=== PATIENT | female | born 1940 | race African-American/Black ===

== ENCOUNTER 2017-05-09 16:26 | Emergency (ER) | payer MEDICARE, BC ==
[~2017-05-09] VITALS: Ht 160 cm; Wt 72.6 kg
[2017-05-09 18:13] LABS: BASO # 0.1 x10^3/uL (0.0-0.2); BASO % 1 % (0-3); EOS % 3 % (0-3); HEMATOCRIT 37.5 % (36.0-47.0); HEMOGLOBIN 12.3 g/dL (12.0-15.5); LYMPH # 1.6 x10^3/uL (1.0-4.8); LYMPH % 13 % (24-48); MEAN CORPUSCULAR HEMOGLOBIN 28 pg (25-35); MEAN CORPUSCULAR HGB CONC 33 g/dL (31-37); MEAN CORPUSCULAR VOLUME 86 fL (79-100); MONO % 9 % (0-9); NEUT % 75 % (31-73); PLATELET COUNT 146 x10^3/uL (140-400); RED BLOOD COUNT 4.33 x10^6/uL (3.50-5.40); RED CELL DISTRIBUTION WIDTH 14.4 % (11.5-14.5); WHITE BLOOD COUNT 12.1 x10^3/uL (4.0-11.0)
[2017-05-09 18:20] LABS: BILIRUBIN,URINE NEGATIVE (NEG); GLUCOSE,URINE NEGATIVE (NEG); NITRITE,URINE NEGATIVE (NEG); PROTEIN,URINE NEGATIVE (NEG-TRACE)
[2017-05-09 18:21] LABS: CALCIUM 9.3 mg/dL (8.5-10.1); GFR 64.9; POTASSIUM 3.9 mmol/L (3.5-5.1)
[2017-05-09 18:26] LABS: ALBUMIN 3.4 g/dL (3.4-5.0); DIRECT BILIRUBIN 0.3 mg/dL (0.0-0.2); TOTAL BILIRUBIN 0.8 mg/dL (0.2-1.0); TOTAL PROTEIN 7.1 g/dL (6.4-8.2)
--- NOTE | 2017-05-09 18:33 | EKG ---
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
[2017-05-09 18:35] LABS: BACTERIA,URINE MANY /HPF (0-FEW); RBC,URINE 0 /HPF (0-2); SQUAMOUS EPITHELIAL CELL,UR MOD /LPF
[2017-05-09] MEDS ORDERED: OSELTAMIVIR 75 MG CAPSULE PO ONE ×2 (18:52→19:15)
[2017-05-09] MEDS ORDERED: ACETAMINOPHEN 325 MG TABLET. PO ONE (19:00)
[2017-05-09] MEDS ORDERED: AZITHROMYCIN 250 MG TABLET. PO ONE (19:00)
[2017-05-09] MEDS ORDERED: KETOROLAC 15 MG/ML VIAL. IV ONE (19:00)
[2017-05-09] MEDS ORDERED: IV NORMAL SALINE 1000ML BAG 1,000 ML IV ONE (19:00)
[2017-05-09 19:15] LABS: OBC FLU VALID
[2017-05-09] MEDS ORDERED: OSEL75CA PO (19:36)
[2017-05-09] MEDS ORDERED: AZIT250T PO (19:36)
--- NOTE | 2017-05-09 19:37 | PHYS DOC ---
Past Medical History Past Medical History: Hypertension Past Surgical History: No Surgical History Alcohol Use: None Drug Use: None Adult General Chief Complaint Chief Complaint: COUGH HPI HPI Patient is a 76 year old female with a history significant for hypertension and bradycardia presents to the ER today secondary to fevers for approximately 1 -2 days as well as a nonproductive cough for 2 days. Patient reports that she is scheduled to leave for [place] on Friday to spend [place] with her grandchild and she is trying to avert any illnesses as much as possible. Patient reports she's had no nausea vomiting or diarrhea. No chest pain or shortness of breath. No abdominal pain sore throat or ear pain dysuria frequency or urgency. Patient reports she has had her flu shot pressure 2 days ago prior to her symptoms starting. Patient reports no history of diabetes liver longer kidney pals. Patient denies any prior surgeries. Patient does not smoke drink or do any drugs. Patient is allergic to any medications. Review of systems: Constitutional: Admits to fevers Eyes: Denies change in visual acuity, redness, or eye pain HENT: Denies sore throat. Admits to nasal congestion. All other systems were reviewed and found to be within normal limits, except as documented in this note. Physical exam Constitutional: Well developed, well nourished, no acute distress, non-toxic appearance. HENT: Normocephalic, atraumatic, bilateral external ears normal, oropharynx moist, no oral exudates, nose normal. Eyes: PERRLA, EOMI, conjunctiva normal, no discharge. Neck: Normal range of motion, no tenderness, supple, no stridor. Cardiovascular:Heart rate regular rhythm, Lungs & Thorax: Bilateral breath sounds clear to auscultation Abdomen: Nondistended. Skin: Warm, dry, no erythema, no rash. Back: No tenderness, no CVA tenderness. Extremities: No tenderness, no cyanosis, no clubbing, ROM intact, no edema. Neurologic: Alert and oriented X 3, normal motor function, normal sensory function, no focal deficits noted. Psychologic: Affect normal, judgement normal, mood normal. ER physical exam is significant for: Influenza test negative for a and B CBC, CMP within normal limits Chest x-ray clear without any infiltrates or effusions as interpreted by ER physician. Assessment and plan: 1. This is a 76-year-old female who presents here today with URI symptoms cough and congestion who has signs and symptoms that could be consistent with influenza. Patient reports she did get her influenza shot however with only 2 days ago. Patient denies any other symptomatology other than the respiratory symptoms. Patient's chest x-ray was unremarkable without any evidence of pneumonia. Patient's blood twice last within normal limits. Patient's influenza test was negative. Patient was given IV fluids as well as Tamiflu and Zithromax here in the ED to cover her. Patient is requesting broad-spectrum treatment since she is leaving for [place] on Friday. Patient be discharged home on Zithromax and Tamiflu 75 mg twice a day 5 days. Patient was given a prescription for Tylenol/Motrin. Patient's clinically hemodynamically stable for discharged home. Patient's pulse ox is 99% on room air which is normal. Current Medications Current Medications Current Medications Medications (Trade) Dose Ordered Sig/Delia Start Time Stop Time Status Last Admin Dose Admin Acetaminophen (Tylenol) 650 mg 1X ONCE 05/09/17 19:00 05/09/17 19:01 DC 05/09/17 18:57 650 MG Azithromycin (Zithromax) 500 mg 1X ONCE 05/09/17 19:00 05/09/17 19:01 DC 05/09/17 18:58 500 MG Ketorolac Tromethamine (Toradol) 15 mg 1X ONCE 05/09/17 19:00 05/09/17 19:01 DC 05/09/17 18:57 15 MG Oseltamivir Phosphate (Tamiflu) 30 mg BID 05/10/17 09:00 05/15/17 08:59 Sodium Chloride 1,000 ml @ 1,000 mls/hr 1X ONCE 05/09/17 19:00 05/09/17 19:59 05/09/17 18:57 1,000 MLS/HR Allergies Allergies Allergies Coded Allergies Type Severity Reaction Last Updated Verified No Known Drug Allergies 05/09/17 No Current Patient Data Vital Signs Vital Signs Date Time Temp Pulse Resp B/P (MAP) Pulse Ox O2 Delivery O2 Flow Rate FiO2 05/09/17 16:50 98.3 64 20 143/65 (91) 98 Room Air 98.3 Lab Values Laboratory Tests Test 05/09/17 17:50 05/09/17 18:00 05/09/17 18:45 Urine Collection Type Unknown Urine Color Yellow Urine Clarity Clear Urine pH 6.0 Urine Specific [place] <=1.005 Urine Protein Negative mg/dL (NEG-TRACE) Urine Glucose (UA) Negative mg/dL (NEG) Urine Ketones (Stick) Negative mg/dL (NEG) Urine Blood Negative (NEG) Urine Nitrite Negative (NEG) Urine Bilirubin Negative (NEG) Urine Urobilinogen Dipstick 1.0 mg/dL (0.2 mg/dL) Urine Leukocyte Esterase Small (NEG) Urine RBC 0 /HPF (0-2) Urine WBC 5-10 /HPF (0-4) Urine Squamous Epithelial Cells Mod /LPF Urine Bacteria Many /HPF (0-FEW) White Blood Count 12.1 x10^3/uL (4.0-11.0) H Red Blood Count 4.33 x10^6/uL (3.50-5.40) Hemoglobin 12.3 g/dL (12.0-15.5) Hematocrit 37.5 % (36.0-47.0) Mean Corpuscular Volume 86 fL (79-100) Mean Corpuscular Hemoglobin 28 pg (25-35) Mean Corpuscular Hemoglobin Concent 33 g/dL (31-37) Red Cell Distribution Width 14.4 % (11.5-14.5) Platelet Count 146 x10^3/uL (140-400) Neutrophils (%) (Auto) 75 % (31-73) H Lymphocytes (%) (Auto) 13 % (24-48) L Monocytes (%) (Auto) 9 % (0-9) Eosinophils (%) (Auto) 3 % (0-3) Basophils (%) (Auto) 1 % (0-3) Neutrophils # (Auto) 9.0 x10^3uL (1.8-7.7) H Lymphocytes # (Auto) 1.6 x10^3/uL (1.0-4.8) Monocytes # (Auto) 1.0 x10^3/uL (0.0-1.1) Eosinophils # (Auto) 0.3 x10^3/uL (0.0-0.7) Basophils # (Auto) 0.1 x10^3/uL (0.0-0.2) Sodium Level 143 mmol/L (136-145) Potassium Level 3.9 mmol/L (3.5-5.1) Chloride Level 105 mmol/L (98-107) Carbon Dioxide Level 29 mmol/L (21-32) Anion Gap 9 (6-14) Blood Urea Nitrogen 11 mg/dL (7-20) Creatinine 1.0 mg/dL (0.6-1.0) Estimated GFR (Cockcroft-Gault) 64.9 Glucose Level 108 mg/dL (70-99) H Lactic Acid Level 1.3 mmol/L (0.4-2.0) Calcium Level 9.3 mg/dL (8.5-10.1) Total Bilirubin 0.8 mg/dL (0.2-1.0) Direct Bilirubin 0.3 mg/dL (0.0-0.2) H Aspartate Amino Transferase (AST) 18 U/L (15-37) Alanine Aminotransferase (ALT) 26 U/L (14-59) Alkaline Phosphatase 86 U/L (46-116) Troponin I Quantitative < 0.017 ng/mL (0.000-0.055) PP-Zig-[id number]-Type Natriuretic Peptide 289 pg/mL (0-449) Total Protein 7.1 g/dL (6.4-8.2) Albumin 3.4 g/dL (3.4-5.0) Lipase 62 U/L (73-393) L Influenza Type A Antigen Negative (NEGATIVE) Influenza Type B Antigen Negative (NEGATIVE) Laboratory Tests 05/09/17 18:00 Laboratory Tests 05/09/17 18:00 EKG EKG [] Radiology/Procedures Radiology/Procedures [] Course & Med Decision Making Course & Med Decision Making Pertinent Labs and Imaging studies reviewed. (See chart for details) [] Dragon Disclaimer Dragon Disclaimer This electronic medical record was generated, in whole or in part, using a voice recognition dictation system. Departure Departure Impression: Primary Impression: Upper respiratory infection Additional Impressions: Viral illness Bronchitis Disposition: 01 HOME, SELF-CARE Condition: IMPROVED Referrals: UNKNOWN PCP NAME (PCP) Patient Instructions: Acute Bronchitis, Influenza, Adult, Upper Respiratory Infection, Adult Scripts Azithromycin (ZITHROMAX) 250 Mg Tablet 1 PKG PO UD, #6 TAB Prov: TIGRE NGUYEN MD 05/09/17 Oseltamivir Phosphate (TAMIFLU) 75 Mg Capsule 75 MG PO BID for FLU for 5 Days, TAB 0 Refills Prov: TIGRE NGUYEN MD 05/09/17 Problem Qualifiers TIGRE NGUYEN MD May 09, 2017 19:37
[2017-05-09 19:46] VITALS: BP 154/73
[2017-05-10] MEDS ORDERED: OSELTAMIVIR 75 MG CAPSULE PO SCH (09:00)
[2017-05-10] MEDS ORDERED: OSELTAMIVIR 30 MG CAPSULE PO SCH (09:00)
--- NOTE | 2017-05-10 11:38 | RAD ---
AP PORTABLE CHEST Clinical Indication: SOA. Comparison: None. Findings: Atherosclerotic aortic arch. The cardiomediastinal silhouette is normal. Lungs are clear. There is no pneumothorax. No pleural effusion is appreciated. There is no acute bone abnormality. Degenerative endplate spurring in the thoracic spine. IMPRESSION: No acute cardiopulmonary process.
--- NOTE | 2017-05-14 14:32 | VNOTE ---
CALL BACK NOTE CALL BACK Microbiology 05/09/17 Urine Culture - Final, Complete 05/09/17 Urine Culture Result 1 (DANIELLE) - Final, Complete 05/09/17 Antimicrobic Susceptibility - Final, Complete 05/14/2017: Patient notified at the #[phone]. She was advised of her urinary tract infection culture results. Prescription was called to [facility] on [address]. Cipro 500 mg one by mouth twice a day #20 no refills patient is aware of this and agrees to pick the prescription up. FAUSTO MARIN APRN May 14, 2017 14:32
== END 2017-05-09 20:08 | disposition home or self-care (01) ==
LOC: ER 16:26
DX: J06.9 Acute upper respiratory infection, unspecified (principal); J40 Bronchitis, not specified as acute or chronic; B34.9 Viral infection, unspecified; I10 Essential (primary) hypertension
CPT/HCPCS: 36415; 71010; 80048; 80076; 81001; 83605; 83690; 83880; 84484; 85025; 87086; 87804; 93005; 96361; 96374; 99285; J1885; J7030; Q0144; 87186